=== PATIENT | male | born 1995 | race African-American/Black ===

== ENCOUNTER 2016-10-24 11:02 | Emergency (ER) | payer SELFPAY ==
[2016-10-24 11:13] VITALS: BP 148/68
[2016-10-24] MEDS ORDERED: PENICILLIN V POTASSIUM 500 MG TABLET PO ONE (11:24)
[2016-10-24] MEDS ORDERED: BENZONATATE 100 MG CAPSULE PO ONE ×2 (11:24→11:58)
[2016-10-24] MEDS ORDERED: IBUPROFEN 800 MG TABLET PO ONE (11:24)
--- NOTE | 2016-10-24 11:25 | ER Document Report ---
HPI - HPI Patient complains to provider of: swelling lower lef jaw Onset: Yesterday Onset/Duration: Gradual Pain Level: Denies Context: 21-year-old male complaining of swelling to his left lower jaw. He has a decayed tooth in this area. No fever. No known drug allergies Associated Symptoms: None Exacerbated by: Other - Chewing pizza crust yesterday Relieved by: Denies - ROS ROS below otherwise negative: Yes Systems Reviewed and Negative: Yes All other systems reviewed and negative - DERM Skin Color: Normal Past Medical History - General Information source: Patient - Social History Smoking Status: Unknown if Ever Smoked Frequency of alcohol use: None Drug Abuse: None Lives with: Family Family History: Reviewed & Not Pertinent Patient has suicidal ideation: No Patient has homicidal ideation: No - Medical History Medical History: Negative Renal/ Medical History: Denies: Hx Peritoneal Dialysis Surgical Hx: Negative Vertical Provider Document - CONSTITUTIONAL Agree With Documented VS: Yes Exam Limitations: No Limitations General Appearance: No Apparent Distress - INFECTION CONTROL TRAVEL OUTSIDE OF THE [place] IN LAST 30 DAYS: No - HEENT HEENT: Normocephalic Notes: pointed dental abscess lower left adjacent to the bicuspid, offered to incise with 18 gauge needle to let the pus out, tessalon perle to numb the area - NECK Neck: Supple. negative: Lymphadenopathy-Left, Lymphadenopathy-Right - RESPIRATORY O2 Sat by Pulse Oximetry: 99 - NEURO Level of Consciousness: Awake, Alert, Appropriate - DERM Integumentary: Warm, Dry Course - Re-evaluation Re-evalutation: 10/24/16 12:05 Numbed the area with Tessalon Perle and now now abscess to drain, must have drained from the hole after my exam - Vital Signs Vital signs: Temp Pulse Resp BP Pulse Ox 97.5 F 62 16 148/68 H 99 10/24/16 11:13 10/24/16 11:13 10/24/16 11:13 10/24/16 11:13 10/24/16 11:13 Discharge - Discharge Clinical Impression: Dental abscess Condition: Good Disposition: HOME, SELF-CARE Instructions: Dentist, Dental Infection or Abscess ([facility]), Penicillin V K ([facility]) , Use of Ojrt-Koh-Bjjhhta Ibuprofen ([facility]), Acetaminophen Additional Instructions: warm compress call and schedule appointment with the dentist to er if worse Please complete the patient satisfaction survey if you get one, and return it.. If you do not receive a survey, then you can go to the [facility] website, [email or web address] and place your comments about your very good care. Thank you very much. It was a pleasure being your medical provider today. Prescriptions: Penicillin V Potassium [Penicillin Vk 500 mg Tablet] 500 mg PO QID #40 tablet Forms: Return to Work
== END 2016-10-24 12:22 | disposition home or self-care (01) ==
LOC: ER 11:02
DX: K04.7 Periapical abscess without sinus (principal)
CPT/HCPCS: 99282

== ENCOUNTER 2019-12-05 22:02 | Emergency (ER) | payer SELFPAY ==
[2019-12-05 22:09] VITALS: BP 148/87
[2019-12-05] MEDS ORDERED: PENICILLIN V POTASSIUM 500 MG TABLET PO ONE (23:05)
[2019-12-05] MEDS ORDERED: OXYCODONE-ACETAMINOPHEN 5-325 MG TABLET PO ONE (23:05)
--- NOTE | 2019-12-05 23:07 | ER Document Report ---
HPI - HPI Time Seen by Provider: 12/05/19 23:01 Notes: Otherwise healthy 24-year-old male presented emergency department chief complaint of dental pain. Patient reports pain to the right lower side of his jaw. He states pain started a few days ago. He denies any fever or chills, denies any drainage from the area. He states that he has had multiple bad teeth that he needs to see a dentist for. - ROS Systems Reviewed and Negative: Yes All other systems reviewed and negative - CONSTITUTIONAL Notes: dental pain Past Medical History - General Information source: Patient - Social History Smoking Status: Never Smoker Frequency of alcohol use: None Family History: Reviewed & Not Pertinent - Medical History Medical History: Negative Renal/ Medical History: Denies: Hx Peritoneal Dialysis Surgical Hx: Negative Vertical Provider Document - CONSTITUTIONAL Notes: PHYSICAL EXAMINATION: GENERAL: Well-appearing, well-nourished and in no acute distress. HEAD: Atraumatic, normocephalic. EYES: Pupils equal round extraocular movements intact, conjunctiva are normal. ENT: Nares patent, poor dentition noted throughout, mild erythema surrounding tooth #30 and 31, no morales abscess, no trismus, patient speaking in full complete sentences swallowing without difficulty. No facial swelling noted. NECK: Normal range of motion LUNGS: No respiratory distress Musculoskeletal: Normal range of motion NEUROLOGICAL: Normal speech, normal gait. PSYCH: Normal mood, normal affect. SKIN: Warm, Dry, normal turgor, no rashes or lesions noted. - INFECTION CONTROL TRAVEL OUTSIDE OF THE [place] IN LAST 30 DAYS: No Course - Re-evaluation Re-evalutation: Presentation is most consistent with likely an infected tooth. Airway is patent. Vitals within normal limits. Patient is able swallow without any difficulty. There is no significant facial swelling. No evidence of Ezequiel angina, apical abscess, or airway obstruction. Patient will be started on antibiotics. I've instructed to follow-up with dentistry as earliest ability for definitive management. At this time will discharge with return precautions and follow-up recommendations. Verbal discharge instructions given a the bedside and opportunity for questions given. Medication warnings reviewed. Patient is in agreement with this plan and has verbalized understanding of return precautions and the need for primary care follow-up in the next 24-72 hours. - Vital Signs Vital signs: Temp Pulse Resp BP Pulse Ox 98.1 F 52 L 20 148/87 H 100 12/05/19 22:07 12/05/19 22:07 12/05/19 22:07 12/05/19 22:07 12/05/19 22:07 Discharge - Discharge Clinical Impression: Dental infection Condition: Stable Disposition: HOME, SELF-CARE Additional Instructions: You have been seen for dental pain. It is very important that you follow-up with a dentist for definitive care. Please return if you develop fever greater than 101, swelling in your face, vomiting, difficulty breathing or swallowing, or any other symptoms that are concerning to you. For pain you should take ibuprofen 800 mg every 8 hours as needed. [facility] [phone] Prescriptions: Penicillin V Potassium [Penicillin Vk 500 mg Tablet] 500 mg PO BID #20 tablet
== END 2019-12-05 23:20 | disposition home or self-care (01) ==
LOC: ER 22:02
DX: K04.7 Periapical abscess without sinus (principal); K08.89 Other specified disorders of teeth and supporting structures; R68.84 Jaw pain
CPT/HCPCS: 99283